=== PATIENT | female | born 1980 | race Caucasian/White ===

== ENCOUNTER 2016-08-22 12:48 | Inpatient (IN) | payer OTHER ==
[~2016-08-22] VITALS: Ht 170.2 cm; Wt 104.1 kg
[~2016-08-22 12:48] MED LIST: MOTRIN 600600 MG/TAB PO; PERCOCET 325 MG1 TA2 PO; PRENATAL VITAMI1 TAB PO
[2016-09-12] VITALS (44 sets, daily range): BP systolic 120–165; BP diastolic 55–89; PULSE 69–90; TEMP 97.5–97.8
[2016-09-12] MEDS ORDERED: TYLENOL PM EXTR1 TA1 PO (07:40)
[2016-09-12 08:09] LABS: BASO % 0.2 % (0.0-2.0); EOS # 0.1 (0.0-0.7); GRAN # 7.1 (1.4-6.5); GRAN % 77.2 % (42.2-75.2); LYMPH # 1.3 (1.2-3.4); LYMPH % 14.5 % (20.0-51.0); MEAN CELL VOLUME 88 fl (80.0-100.0); MEAN CORPUSCULAR HGB CONC 35 g/dl (33.0-37.0); MEAN PLATELET VOLUME 10.3 fl (7.4-10.4); MONO # 0.6 (0.1-0.6); MONO % 6.7 % (1.7-9.3); PLATELET COUNT 260 K/mm3 (130-400); RED BLOOD COUNT 3.89 M/mm3 (4.10-5.30); REDCELL DISTRIBUTION WIDTH-CV 13.9 % (11.5-14.5); WHITE BLOOD COUNT 9.2 K/mm3 (4.8-10.8)
[2016-09-12 08:13] LABS: HEMATOCRIT 34.3 % (37.0-47.0); HEMOGLOBIN 11.9 g/dl (12.5-16.0); MEAN CORPUSCULAR HEMOGLOBIN 31 pg (27.0-31.0)
[2016-09-13 09:07] VITALS: BP 111/63; PULSE 7; PULSE 79; TEMP 9
[2016-09-13 16:23] VITALS: BP 138/59; PULSE 77; TEMP 97.8
[2016-09-14 07:00] VITALS: BP 121/59; PULSE 87; TEMP 98.1
[2016-09-14] MEDS ORDERED: IBU600 MG PO (09:04)
[2016-09-14] MEDS ORDERED: PERCOCET 325 MG1 TA2 PO (09:04)
[2016-09-14 12:35] VITALS: BP 110/68; PULSE 78; TEMP 98.1
== END 2016-09-14 12:35 | disposition home or self-care (01) | DRG 775 ==
LOC: OB 12:48 → LDR 09-12 07:05 → OB 09-12 21:00
PROVIDERS: Obstetrics & Gynecology
PROC: 10E0XZZ Delivery of Products of Conception, External Approach (ICD-10-PCS; principal; 2016-09-12)
PROC: 0KQM0ZZ Repair Perineum Muscle, Open Approach (ICD-10-PCS; 2016-09-12)
PROC: 3E033VJ Introduction of Other Hormone into Peripheral Vein, Percutaneous Approach (ICD-10-PCS; 2016-09-12)
DX: O48.0 Post-term pregnancy (principal); O99.824 Streptococcus B carrier state complicating childbirth; O77.0 Labor and delivery complicated by meconium in amniotic fluid; O70.1 Second degree perineal laceration during delivery; O09.523 Supervision of elderly multigravida, third trimester; Z3A.41 41 weeks gestation of pregnancy; Z37.0 Single live birth
CPT/HCPCS: J2405; J2540; J2590; J7120

== ENCOUNTER 2018-04-26 10:40 | Inpatient (IN) | payer OTHER ==
[~2018-04-26] VITALS: Ht 170.2 cm; Wt 85.3 kg
[~2018-04-26 10:40] MED LIST changes: +IBU600 MG PO; +TYLENOL PM EXTR1 TA1 PO
[2018-04-26 11:14] LABS: BASO % 0.4 % (0.0-2.0); EOS # 0.1 (0.0-0.7); EOS % 1.8 % (0-4.0); GRAN # 1.9 (1.4-6.5); GRAN % 67.7 % (42.2-75.2); HEMATOCRIT 38.8 % (37.0-47.0); HEMOGLOBIN 13.9 g/dl (12.5-16.0); LYMPH # 0.6 (1.2-3.4); LYMPH % 21.2 % (20.0-51.0); MEAN CELL VOLUME 85 fl (80.0-100.0); MEAN CORPUSCULAR HEMOGLOBIN 30 pg (27.0-31.0); MEAN CORPUSCULAR HGB CONC 36 g/dl (33.0-37.0); MEAN PLATELET VOLUME 10.1 fl (7.4-10.4); MONO # 0.2 (0.1-0.6); MONO % 8.5 % (1.7-9.3); PLATELET COUNT 233 K/mm3 (130-400); RED BLOOD COUNT 4.57 M/mm3 (4.10-5.30); REDCELL DISTRIBUTION WIDTH-CV 12.1 % (11.5-14.5)
[2018-04-26 11:18] LABS: PROTHROMBIN TIME 11.9 SECONDS (9.7-12.8)
[2018-04-26 11:26] LABS: ALBUMIN 3.7 gm/dL (3.5-5.0); BILIRUBIN,TOTAL 0.3 mg/dL (0.0-1.0); C-REACTIVE PROTEIN 0.9 mg/dL (0.0-0.9); CALCIUM 8.5 mg/dL (8.4-10.2); CREATININE, serum 0.72 mg/dL (0.52-1.25); TOTAL PROTEIN 6.6 gm/dL (6.4-8.2)
[2018-04-26 13:57] LABS: CHOLESTEROL RISK RATIO 3.8
[2018-04-26 17:01] VITALS: BP 136/89; PULSE 75; TEMP 97.5
[2018-04-26 17:04] VITALS: BP 136/89; PULSE 75; TEMP 97.5
[2018-04-26 18:48] LABS: THYROID STIMULATING HORMONE 1.58 uIU/mL (0.465-4.680)
[2018-04-26 19:59] VITALS: BP 130/71; PULSE 88; TEMP 98.3
[2018-04-27] VITALS: BP 123/64; PULSE 70; TEMP 97.4
[2018-04-27 04:14] VITALS: BP 132/72; PULSE 72; TEMP 98.1
[2018-04-27 07:39] VITALS: BP 128/84; PULSE 70; TEMP 97.9
[2018-04-27 09:32] LABS: BASO % 0.6 % (0.0-2.0); EOS # 0.1 (0.0-0.7); EOS % 1.8 % (0-4.0); GRAN # 2.2 (1.4-6.5); GRAN % 64.6 % (42.2-75.2); HEMATOCRIT 41.3 % (37.0-47.0); HEMOGLOBIN 14.6 g/dl (12.5-16.0); LYMPH # 0.8 (1.2-3.4); LYMPH % 24.9 % (20.0-51.0); MEAN CELL VOLUME 85 fl (80.0-100.0); MEAN CORPUSCULAR HEMOGLOBIN 30 pg (27.0-31.0); MEAN CORPUSCULAR HGB CONC 35 g/dl (33.0-37.0); MEAN PLATELET VOLUME 10.1 fl (7.4-10.4); MONO # 0.3 (0.1-0.6); MONO % 7.8 % (1.7-9.3); PLATELET COUNT 250 K/mm3 (130-400); RED BLOOD COUNT 4.86 M/mm3 (4.10-5.30); REDCELL DISTRIBUTION WIDTH-CV 11.9 % (11.5-14.5)
[2018-04-27 09:42] LABS: BILIRUBIN,TOTAL 0.4 mg/dL (0.0-1.0); CALCIUM 8.9 mg/dL (8.4-10.2); CREATININE, serum 0.82 mg/dL (0.52-1.25); POTASSIUM 4.3 mmol/L (3.4-5.0); TOTAL PROTEIN 7.1 gm/dL (6.4-8.2)
[2018-04-27 11:15] VITALS: BP 132/81; PULSE 75; TEMP 97.6
[2018-04-27 15:26] VITALS: BP 131/75; PULSE 84; TEMP 97.8
[2018-04-27 20:01] VITALS: BP 127/83; PULSE 79; TEMP 97.7
[2018-04-28 00:51] VITALS: BP 108/61; PULSE 77; TEMP 97.9
[2018-04-28 04:23] VITALS: BP 115/73; PULSE 77; TEMP 98
[2018-04-28 07:08] LABS: BASO % 0.3 % (0.0-2.0); EOS # 0.1 (0.0-0.7); EOS % 2.6 % (0-4.0); GRAN # 2.6 (1.4-6.5); GRAN % 67.9 % (42.2-75.2); HEMATOCRIT 39.4 % (37.0-47.0); LYMPH # 0.8 (1.2-3.4); LYMPH % 20.8 % (20.0-51.0); MEAN CELL VOLUME 85 fl (80.0-100.0); MEAN CORPUSCULAR HEMOGLOBIN 30 pg (27.0-31.0); MEAN CORPUSCULAR HGB CONC 36 g/dl (33.0-37.0); MEAN PLATELET VOLUME 10.5 fl (7.4-10.4); MONO # 0.3 (0.1-0.6); MONO % 8.1 % (1.7-9.3); PLATELET COUNT 240 K/mm3 (130-400); RED BLOOD COUNT 4.64 M/mm3 (4.10-5.30); REDCELL DISTRIBUTION WIDTH-CV 11.9 % (11.5-14.5)
[2018-04-28 07:21] LABS: ALBUMIN 3.8 gm/dL (3.5-5.0); BILIRUBIN,TOTAL 0.3 mg/dL (0.0-1.0); CALCIUM 8.7 mg/dL (8.4-10.2); CREATININE, serum 0.81 mg/dL (0.52-1.25); POTASSIUM 4.2 mmol/L (3.4-5.0); TOTAL PROTEIN 6.8 gm/dL (6.4-8.2)
[2018-04-28 07:43] LABS: FACTOR V LEIDEN MUTATION B Negative (Negative)
[2018-04-28] MEDS ORDERED: PLAVIX 75MG TAB75 MG PO (10:48)
[2018-04-28] MEDS ORDERED: LIPITOR 40MG TA40 MG PO (10:48)
[2018-04-28] MEDS ORDERED: ASPIRIN 32325 MG/TAB PO (11:09)
[2018-04-29 01:56] LABS: HOMOCYSTEINE 19.5 umol/L (4.0-14.0)
[2018-04-29 09:10] LABS: PROTEIN C ACTIVITY 64 % (70-150)
[2018-04-29 09:13] LABS: ANTI-THROMBIN III 129 % (72-128)
[2018-04-29 13:27] LABS: LUPUS ANTICOAGULANT PT 11.2 sec (())
[2018-04-29 18:27] LABS: BETA-2 GPI IGM AABS <9.4 U/mL (())
[2018-04-29 21:18] LABS: BETA-2 GPI IGG AABS <9.4 U/mL (())
== END 2018-04-28 14:20 | disposition home or self-care (01) | DRG 65 ==
LOC: COL.ER 10:40 → MEDICAL 12:41
PROVIDERS: Family Medicine; Psychiatry & Neurology Neurology; Student in an Organized Health Care Education/Training Program
DX: I63.89 Other cerebral infarction (principal); G81.94 Hemiplegia, unspecified affecting left nondominant side; R29.810 Facial weakness; Z23 Encounter for immunization
CPT/HCPCS: 99223-AI; 99233-AI; 99239; G9654; J0330; J1650; J2704; Q9967

== ENCOUNTER → 2020-03-01 | Outpatient (CLI) | payer OTHER ==
[~2020-03-01] MED LIST changes: +ASPIRIN 32325 MG/TAB PO; +LIPITOR 40MG TA40 MG PO; +PLAVIX 75MG TAB75 MG PO
== END ==
LOC: COL.RAD 07:51
DX: D17.0 Benign lipomatous neoplasm of skin and subcutaneous tissue of head, face and neck (principal)
CPT/HCPCS: A9585